=== PATIENT | female | born 1960 | race Caucasian/White ===

== ENCOUNTER 2024-02-22 08:22 | Day surgery (SDC) | payer MEDICARE ==
[2024-02-17 11:00] VITALS: BMI 19.0
[2024-02-22] MEDS ORDERED: SUGAMMADEX SODIUM 200 MG/2 ML VIAL ONE (08:47)
[2024-02-22] MEDS ORDERED: Dexamethasone 4 mg/ml Vial ONE (08:47)
[2024-02-22] MEDS ORDERED: Lidocaine 1% PF 5 ML VIAL ONE (08:47)
[2024-02-22] MEDS ORDERED: PROPOFOL 20 ML ONE (08:47)
[2024-02-22] MEDS ORDERED: Rocuronium Bromide 10 MG/ML (10ML VIAL) ONE (08:47)
[2024-02-22] MEDS ORDERED: Ondansetron PF 4 MG/2 ML Vial ONE (08:47)
[2024-02-22] MEDS ORDERED: fentaNYL 50 mcg/mL 1 mL Vial ONE (08:48)
[2024-02-22] MEDS ORDERED: EPINEPHrine 1 MG/ML VIAL ONE (10:13)
== END 2024-02-22 12:10 | disposition home or self-care (01) ==
LOC: CSHSDC 08:22
PROVIDERS: ATTEND Otolaryngology
PROC: 0CBV8ZZ Excision of Left Vocal Cord, Via Natural or Artificial Opening Endoscopic (ICD-10-PCS; principal; 2024-02-22)
PROC: 0CBV8ZX Excision of Left Vocal Cord, Via Natural or Artificial Opening Endoscopic, Diagnostic (ICD-10-PCS; 2024-02-22)
DX: J38.3 Other diseases of vocal cords (principal); R49.0 Dysphonia; F17.210 Nicotine dependence, cigarettes, uncomplicated
CPT/HCPCS: 31536; 31541; J0171; J1100; J2405; J2704; J3010; 88305; 88331